=== PATIENT | male | born 1965 | race Caucasian/White ===

== ENCOUNTER 2016-11-04 21:37 | Emergency (ER) | payer SELFPAY ==
[~2016-11-04] VITALS: Ht 170.2 cm; Wt 72.6 kg
[2016-11-04 22:27] LABS: Basophils # (auto) 0.1 uL; Basophils % (auto) 0.6 % (0.0-2.0); CONDITION Y; Eosinophils # (auto) 0.3 uL; Eosinophils % (auto) 2.6 % (0.0-7.0); Hematocrit 49.9 % (41.0-53.0); Hemoglobin 16.8 g/dL (13.5-17.5); Lymphocytes % (auto) 19.1 % (10.0-50.0); Mean Corpuscular Hemoglobin 30.7 pg (28.0-32.0); Mean Corpuscular Hgb Conc. 33.5 g/dL (32.0-36.0); Mean Corpuscular Volume 91.6 fL (80.0-100.0); Mean Platelet Volume 8.2 fL (7.4-10.4); Monocytes # (auto) 0.7 uL; Monocytes % (auto) 6.9 % (0.0-12.0); Neutrophils # (auto) 7.2 uL; Neutrophils % (auto) 70.8 % (37.0-80.0); Platelet Count (auto) 348 10^3/uL (140-450); Red Cell Distribution Width 14.1 % (11.6-16.0); White Blood Cell 10.2 10^3/uL (4.4-10.8)
[2016-11-04 22:46] LABS: Albumin 3.6 g/dL (3.4-5.0); BUN/Creatinine Ratio 19.4; Calcium 8.8 mg/dL (8.5-10.1); Potassium 3.4 mmol/L (3.5-5.1)
[2016-11-04 22:49] LABS: Bilirubin, Total 0.4 mg/dL (0.2-1.0)
[2016-11-05 01:35] LABS: Urine Bilirubin Negative (Negative); Urine Blood Negative /uL (Negative); Urine Color Yellow (Yellow); Urine Glucose Normal (Normal); Urine Ketone Negative (Negative); Urine Mucus FEW (None Seen); Urine Nitrite Negative (Negative); Urine RBC 1 /hpf (0 - 3); Urine Sperm PRESENT /hpf (None Seen); Urine Urobilinogen Normal (Negative); Urine pH 5.5 (5.0-8.0)
[2016-11-05] MEDS ORDERED: ACETAMINOPHEN 325 MG TAB PO ONE (01:45)
[2016-11-05] MEDS ORDERED: SODIUM CHLORIDE 0.9% 1,000 ML IV ONE (02:00)
[2016-11-05] MEDS ORDERED: cefTRIAXone 1GM/50ML D5W 50 ML IV ONE (02:00)
[2016-11-05 02:23] LABS: B-Type Natriuretic Peptide 12.9 pg/mL (0-100); Temperature: 21.5 C (20.0-25.0)
[2016-11-05 02:23] LABS: Allen Test Yes; Base Excess 1.5 mmol/L (-2.0-2.0); Blood 02Sat 91.5 % (96-100); Blood COHb 0.8 % (0.5-1.5); Blood MetHb 0.1 % (0.0-1.5); HCO3 25.8 mmol/L (22-26.0); HHb 8.4 % (0.0-5.0); MODE ROOM AIR; O2Hb 90.7 % (94.0-97.0); PCO2 39.7 mmHg (35.0-45.0); PCO2(T) 39.7 mmHg (35.0-45.0); PO2 60.7 mmHg (80.0-100.0); PO2(T) 60.7 mmHg (80.0-100.0); Sample Type Arterial
[2016-11-05 02:25] LABS: INR 1.03 (0.9-1.15); Partial Thromboplastin Time 29.4 sec (22.64-33.71); Prothrombin Time 11.2 sec (9.37-12.3)
[2016-11-05 06:10] VITALS: BP 125/77
== END 2016-11-05 06:42 | disposition home or self-care (01) ==
LOC: ER 21:40
DX: J20.9 Acute bronchitis, unspecified (principal); F19.10 Other psychoactive substance abuse, uncomplicated
CPT/HCPCS: 36415; 36600; 71010; 80053; 80307; 80329; 81001; 82805; 83605; 83880; 84484; 85025; 85379; 85610; 85730; 87040; 93005; 96365; 99285; J0696; J7030